=== PATIENT | male | born 1960 | race Caucasian/White ===

== ENCOUNTER 2017-10-05 07:33 | Emergency (ER) | payer OTHER ==
[~2017-10-05] VITALS: Ht 175.3 cm; Wt 83.0 kg
[2017-10-05 07:37] VITALS: TEMP 36.6; Ht 175.3 cm; Wt 83.0 kg
[2017-10-05] MEDS ORDERED: MoRPHine SULFATE 10 MG/ML CARP/VIAL IM STA ×2 (07:50→09:14)
[2017-10-05] MEDS ORDERED: ONDANSETRON 4MG OD TAB PO ONE (08:00)
[2017-10-05] MEDS ORDERED: CYCL10TA6 PO (08:12)
[2017-10-05] MEDS ORDERED: IBUP-1427 PO (08:12)
--- NOTE | 2017-10-05 08:12 | EMERGENCY ROOM VISIT NOTE ---
History Report prepared by Ismael: Silvia Rodriguez Under the Supervision of: Dr. Vinicius Sinha M.D. First contact with patient: 07:44 Chief Complaint: BACK PAIN Stated Complaint: LWR BACK/WAIST PAIN,MUSCLE SPASMS,CAN HARDLY MOVE History of Present Illness The patient is a 56 year old male who presents to the Emergency Room with complaints of a persistent lower back pain that began on Thursday. He currently rates his discomfort as a 9/10 in severity. 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 He notes that this morning he was on the floor unable to get up due to his pain. The patient states that he has had difficulty standing due to the pain. He reports increased pain with any movement. The patient notes he has been taking Advil and Aspirin without relief of his symptoms and the patient's son notes that the patient has tried a heating pad without relief of his symptoms. He denies any abdominal pain or urinary symptoms. The patient states that he is constipated. He notes a history of hypertension. Source of History: patient, family (patient's son ) Onset: Thursday Position: back (lower back) Symptom Intensity: 9/10 Timing: other (persistent) Modifying Factors (Worsening): movement Associated Symptoms: No abdominal pain, No urinary symptoms Review of Systems All systems have been listed, reviewed, and are negative other than those previously mentioned. Please see Additional Medical History Sheet. Past Medical & Surgical Medical Problems: (1) Diabetes (2) Hypertension Family History Diabetes mellitus Hypertension Social History Smoking Status: Never Smoker Smokeless Tobacco Use: No Alcohol Use: occasionally Marital Status: Housing Status: lives with family Occupation Status: employed Current/Historical Medications Scheduled Hctz/Losartan (Hyzaar 25MG/100MG), 0.5-1 TAB PO DAILY Scheduled PRN Cyclobenzaprine Hcl (Flexeril), 10 MG PO TID PRN for back pain Ibuprofen Tab (Motrin), 600 MG PO Q6H PRN for Pain Allergies Coded Allergies: No Known Allergies (Unverified , 10/05/17) Physical Exam Vital Signs Date Time Temp Pulse Resp B/P (MAP) Pulse Ox O2 Delivery O2 Flow Rate FiO2 10/05/17 09:22 86 18 146/92 98 Room Air 10/05/17 07:37 36.6 79 16 133/92 96 Room Air Physical Exam GENERAL: Patient awake, alert, oriented x 3. Patient follows commands. Patient does not appear toxic. Patient is adequately hydrated and well- nourished. Patient is in marked distress, pain with any movement SKIN: No erythema, pallor, cyanosis or rash HEENT: Ears normal. Oral cavity and posterior pharynx appear normal. Neck: Without adenopathy, no neck vein distention. LUNGS: Clear to auscultation. No wheezes, no rales, no rhonchi. HEART: No murmurs. No gallops. No rubs ABDOMEN: Abdomen is soft, nontender. BACK: Patient has significant muscle spasm bilaterally over para-lumbar musculature. Straight leg raising positive bilaterally. EXTREMITIES: No signs of trauma. No pedal or pretibial edema. No calf or thigh tenderness. NEUROLOGIC: Cranial nerves II-XII within normal limits. No gross motor sensory function deficits. Medical Decision & Procedures Medications Administered Medications (Trade) Dose Ordered Sig/Anitha Route Start Time Stop Time Status Last Admin Dose Admin Morphine Sulfate (MoRPHine SULFATE INJ) 10 mg NOW STAT IM 10/05/17 07:50 10/05/17 07:52 DC 10/05/17 07:57 10 MG Ondansetron HCl (Zofran Odt) 4 mg ONE ONCE PO 10/05/17 08:00 10/05/17 08:01 DC 10/05/17 07:57 4 MG Morphine Sulfate (MoRPHine SULFATE INJ) 6 mg NOW STAT IM 10/05/17 09:14 10/05/17 09:15 DC 10/05/17 09:22 6 MG ED Course 0750: Past medical records reviewed. The patient was evaluated in room A04. A complete history and physical examination was performed. 0750: Ordered Morphine Sulfate INJ 10mg IM. 0800: Ordered Zofran Odt 4mg PO and 12: I reevaluated the patient and he is resting. He is going to have additional pain medication ordered. 913: Ordered Morphine Sulfate 6mg IM. 44: Upon reevaluation, the patient appeared to have improvement of his symptoms. I discussed today's findings with him. The patient verbalized agreement of the treatment plan. The patient was discharged home. Medical Decision Nurses notes reviewed. Medical history sheet reviewed. Differential diagnosis includes but is not limited to: low back strain/spasm, Cauda Equina, Ruptured Nucleus Pulposus. Examination is most consistent with muscular spasm. He does not have significant pain over the lumbar spine. The patient does not have a history consistent with a fracture dislocation or subluxation. The patient was given 2 shots of morphine and was observed in between. The patient was checked again prior to discharge. He was feeling better. The patient was given a prescription for Motrin and Flexeril. I do not believe the patient requires any imaging at this time. Medication Reconcilliation Current Medication List: was personally reviewed by me Blood Pressure Screening Patient's blood pressure: Elevated blood pressure Blood pressure disposition: Referred to PCP Impression Primary Impression: Spasm of back muscles Scribe Attestation The scribe's documentation has been prepared under my direction and personally reviewed by me in its entirety. I confirm that the note above accurately reflects all work, treatment, procedures, and medical decision making performed by me. Departure Information Dispostion Home / Self-Care (normally I put my discharge instructions in the document and they go over automatically whenever I did) Prescriptions Ibuprofen Tab (MOTRIN) 600 Mg Tab 600 MG PO Q6H Y for Pain, #30 TAB Prov: Vinicius Sinha M.D. 10/05/17 Cyclobenzaprine Hcl (FLEXERIL) 10 Mg Tab 10 MG PO TID Y for back pain, #20 TAB Prov: Vinicius Sinha M.D. 10/05/17 Referrals No Doctor, Assigned (PCP) Forms HOME CARE DOCUMENTATION FORM, IMPORTANT VISIT INFORMATION Patient Instructions My [facility] Additional Instructions 600 mg ibuprofen every 6 hours until pain has resolved. One Flexeril every 8 hours as needed for back spasm. Do not drive or operate machinery while taking Flexeril. Apply heat intermittently to your back of the next 2-3 days. Follow-up with your family physician or return here in one week if symptoms are not resolving.
[2017-10-05] MEDS ORDERED: HYZ/10015 PO (08:36)
[2017-10-05 09:22] VITALS: BP 146/92; PULSE 86; O2SAT 98
== END 2017-10-05 10:08 | disposition home or self-care (01) ==
LOC: C.EDB 07:34 → C.EDA 10:08
DX: M62.830 Muscle spasm of back (principal); I10 Essential (primary) hypertension; E11.9 Type 2 diabetes mellitus without complications; Z79.899 Other long term (current) drug therapy; Z83.3 Family history of diabetes mellitus; Z82.49 Family history of ischemic heart disease and other diseases of the circulatory system